=== PATIENT | female | born 1990 | race Caucasian/White ===

== ENCOUNTER 2018-01-21 17:28 | Emergency (ER) | END 2018-01-21 21:35 | disposition home or self-care (01) ==

== ENCOUNTER 2018-03-26 13:33 | Emergency (ER) | END 2018-03-26 17:30 | disposition home or self-care (01) ==

== ENCOUNTER 2018-03-26 18:17 | Outpatient (CLI) | END 2018-03-27 00:25 | disposition home or self-care (01) ==

== ENCOUNTER 2019-01-09 16:45 | Emergency (ER) | payer OTHER ==
[~2019-01-09] VITALS: Ht 152.4 cm; Wt 86.6 kg
[~2019-01-09 16:45] MED LIST: ACET325T33 PO
[2019-01-09 17:06] VITALS: BP 102/56; PULSE 87; RESP 18; Ht 152.4 cm; Wt 86.6 kg
--- NOTE | 2019-01-09 19:05 | ERD ---
ER Documentation Chief Complaint Chief Complaint bilateral ear pain x4 days, decrease hearing HPI 28-year-old female with no reported past medical surgical history presents with complaint of bilateral ear pain over the past 4 days. States she has had ear pain as well as muffled hearing. Has also had intermittent dry cough and the nose. She otherwise denies discharge from the ear, recent trauma or injury to the ears, fevers, chills, chest pain, shortness of breath, denies pain or pressure, sore throat, other concerning symptoms. [facility] with this Wednesday and prescribed eardrops to help with ear wax. States eardrops have made pain worse. She has not taking anything for pain. ROS All systems reviewed and are negative except as per history of present illness. Medications Home Meds Active Scripts Acetaminophen* (Tylenol*) 325 Mg Tablet, 2 TAB PO Q8 PRN for PAIN AND OR ELEVATED TEMP, #20 TAB Prov:YANN SARABIA Aneesh 01/21/18 Allergies Allergies: Coded Allergies: No Known Drug Allergy (Verified Allergy, Unknown, 03/25/16) PMhx/Soc History of Surgery: No Anesthesia Reaction: No Hx Neurological Disorder: No Hx Respiratory Disorders: No Hx Cardiac Disorders: No Hx Psychiatric Problems: No Hx Miscellaneous Medical Probl: No Hx Alcohol Use: No Hx Substance Use: No Hx Tobacco Use: No Smoking Status: Never smoker FmHx Family History: No diabetes, No coronary disease, No other Physical Exam Vitals Vital Signs Date Temp Pulse Resp B/P (MAP) Pulse Ox O2 O2 Flow FiO2 Time Delivery Rate 01/09/19 98.3 87 18 102/56 96 17:06 (71) Physical Exam I have reviewed the triage vital signs. Const: Well nourished, well developed, appears stated age Eyes: PERRL, no conjunctival injection HENT: NCAT, Neck supple without meningismus, left ear with copious amounts of wax, right ear same CV: RRR, Warm, well-perfused extremities RESP: CTAB, Unlabored respiratory effort GI: soft, non-tender, non-distended, no masses MSK: No gross deformities appreciated Skin: Warm, dry. No rashes Neuro: grossly non focal Psych: Appropriate mood and affect. Procedures/MDM Presents with ear pain congestion likely secondary to earwax accumulation. It is afebrile, no overt evidence of otitis media, mastoiditis or malignant otitis externa. Low suspicion for intracranial extension. Pt non-toxic appearing, tolerating PO. Bilateral ears irrigated in the ED with resolution of symptoms. Follow-up exam without any acute findings, clear TMs, no erythema or discharge. Patient reporting resolution of symptoms. ED course: Bilateral ear irrigation DISPOSITION PLAN: We discussed follow up with the patient's primary care doctor within 24 to 48 hours. Patient counseled regarding my diagnostic impression and care plan. Prior to discharge all questions answered. Pt agrees with treatment plan and understands strict return precautions. Precautionary instructions provided including instructions to return to the ER if not improving or for any worsening or changing symptoms or concerns. Disclaimer: Inadvertent spelling and grammatical errors are likely due to EHR/dictation software use and do not reflect on the overall quality of patient care. Also, please note that the electronic time recorded on this note does not necessarily reflect the actual time of the patient encounter. Departure Diagnosis: Primary Impression: Ear problem Condition: Stable Referrals: [facility] YOU HAVE RECEIVED A MEDICAL SCREENING EXAM AND THE RESULTS INDICATE THAT YOU DO NOT HAVE A CONDITION THAT REQUIRES URGENT TREATMENT IN THE EMERGENCY DEPARTMENT. FURTHER EVALUATION AND TREATMENT OF YOUR CONDITION CAN WAIT UNTIL YOU ARE SEEN IN YOUR DOCTORS OFFICE WITHIN THE NEXT 1-2 DAYS. IT IS YOUR RESPONSIBILITY TO MAKE AN APPOINTMENT FOR FOLOW-UP CARE. IF YOU HAVE A PRIMARY DOCTOR --you should call your primary doctor and schedule an appointment IF YOU DO NOT HAVE A PRIMARY DOCTOR YOU CAN CALL OUR PHYSICIAN REFERRAL HOTLINE AT IF YOU CAN NOT AFFORD TO SEE A PHYSICIAN YOU CAN CHOSE FROM THE FOLLOWING [facility] [address] [facility] [address] [facility] [facility] [address] [facility] [address] [facility] [address] [facility]. [facility]. [address] Additional Instructions: Call your primary care doctor TOMORROW for an appointment during the next 2-3 days.See the doctor sooner or return here if your condition worsens before your appointment time. MIREYA ENNIS PA-C Jan 09, 2019 19:05
== END 2019-01-09 20:11 | disposition home or self-care (01) ==
LOC: FTE 16:45
DX: H93.93 Unspecified disorder of ear, bilateral (principal)
CPT/HCPCS: 99283